=== PATIENT | male | born 1985 | race American Indian/Alaskan Native ===

== ENCOUNTER 2016-11-21 09:41 | Outpatient (CLI) | payer OTHER ==
--- NOTE | 2016-11-21 11:18 | XRay Report ---
Bilateral ankle 2 views: History: Back injury ankle injury. Findings: No bony or articular abnormality. No fracture or dislocation. Impression: No evidence of acute fracture right and left ankle.
--- NOTE | 2016-11-21 11:19 | XRay Report ---
Right knee 2 views: History: Injury and pain. Findings: No definite fracture or dislocation. No soft tissue calcification. Normal articular surfaces. Impression: No definite evidence of acute fracture.
--- NOTE | 2016-11-21 11:20 | XRay Report ---
Lumbar spine 3 views: History: Back injury, ankle injury. Findings: Normal height of vertebral bodies and intervertebral disc. Normal articular surfaces. No fracture. No paravertebral mass. Impression: No bony or articular abnormality lumbar spine.
== END 2016-11-21 09:42 | disposition home or self-care (01) ==
LOC: XRAY 09:41
PROVIDERS: ATTEND Internal Medicine
DX: M25.561 Pain in right knee (principal); M25.571 Pain in right ankle and joints of right foot; M25.572 Pain in left ankle and joints of left foot; M54.5 Low back pain
CPT/HCPCS: 72100